=== PATIENT | female | born 1980 | race Caucasian/White ===

== ENCOUNTER 2019-06-02 12:23 | Outpatient (CLI) | payer OTHER, SELFPAY ==
--- NOTE | ~2019-06-02 | MM_ITS ---
EXAMINATION: MM screening [facility] BI w lamont HISTORY: Screening mammogram TECHNIQUE: Craniocaudal and mediolateral oblique 3-D tomosynthesis images were obtained and synthetic 2-D images were generated. CAD analysis was submitted and interpreted. COMPARISON: No prior mammogram is available for comparison at this institution. BREAST PARENCHYMAL COMPOSITION: Breast composed of scattered areas of fibroglandular density. FINDINGS: There is focal asymmetry in the lower inner quadrant of the right breast, middle third. The re is no mammographic evidence for malignancy in the left breast. IMPRESSION: 1. Focal right breast asymmetry lower inner quadrant. 2. Additional mammographic views and possible breast ultrasound are recommended. BI-RADS Category 0: Incomplete: Needs additional imaging evaluation. Reviewed, dictated and finalized at location A. REGULATOR IMPRESSION: 1. Focal right breast asymmetry lower inner quadrant. 2. Additional mammographic views and possible breast ultrasound are recommended . BI-RADS Category 0: Incomplete: Needs additional imaging evaluation.
== END 2019-06-02 12:24 | disposition home or self-care (01) ==
LOC: CHSIMG 12:27
PROVIDERS: Visit Provider Family Medicine
DX: Z12.31 Encounter for screening mammogram for malignant neoplasm of breast (principal)
CPT/HCPCS: 77063; 77067

== ENCOUNTER 2019-06-16 09:48 | Outpatient (CLI) | payer OTHER, SELFPAY ==
--- NOTE | ~2019-06-16 | MMUS_ITS ---
EXAMINATION: MM diagnostic [facility] RT w lamont, US breast RT limited HISTORY: Right breast asymmetry on screening TECHNIQUE: Additional 3-D tomosynthesis images of the right breast were performed and synthetic 2-D i mages were generated. CAD analysis was submitted and interpreted. High resolution limited right breas t ultrasound was performed. COMPARISON: 12/01/2019 FINDINGS: MAMMOGRAPHIC FINDINGS: There is an approximately 1.4 x 0.5 cm oval, low density, obscured mass in the anterior third of the lower breast at the 6:00 location 8.5 cm from the nipple. No suspicious mass or architectural distort ion are identified. ULTRASOUND: There is a 4 mm x 2 mm oval, circumscribed, parallel, hypoechoic mass with no posterior features or i nternal vascularity at the 3:00 location 3 cm from the nipple. There is a 1.8 x 0.4 cm oval circumscr ibed, parallel, hypoechoic mass with no posterior features or internal vascularity at the 5:00 locati on 4 cm from the nipple corresponding to the mammographic finding in question.. IMPRESSION: 1. Probably benign right breast masses. 2. Recommend 6 month follow-up right diagnostic mammogram and ultrasound. BI-RADS category 3, probably benign findings. Reviewed, dictated and finalized at location A. IMPRESSION: 1. Probably benign right breast masses. 2. Recommend 6 month follow-up right diagnostic mammogram and ultrasound. BI-RADS category 3, probably benign findings.
== END 2019-06-16 09:49 | disposition home or self-care (01) ==
LOC: CHSIMG 09:50
PROVIDERS: PCP Family Medicine; Visit Provider Family Medicine
DX: R92.8 Other abnormal and inconclusive findings on diagnostic imaging of breast (principal)
CPT/HCPCS: 76642; 77061; 77065; G0279

== ENCOUNTER 2019-10-19 13:24 | Outpatient (CLI) | payer OTHER, SELFPAY ==
--- NOTE | ~2019-10-19 | XR_ITS ---
XR knee LT 3V DATE: 10/19/2019 13:45 INDICATION: Left anterior knee pain TECHNIQUE: 3 views COMPARISON: None FINDINGS: There is mild loss of joint space height and mild periarticular spurring at the medial comp artment consistent with osteoarthritis. No fracture or dislocation or joint effusion. No periosteal reaction or bone destruction is evident. There is an apparent old healed fracture deformity of the very proximal fibular shaft. No radiopaque intra-articular loose body or chondrocalcinosis. 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
== END 2019-10-19 13:25 | disposition home or self-care (01) ==
PROVIDERS: PCP Family Medicine; Visit Provider Nurse Practitioner
DX: M25.562 Pain in left knee (principal)
CPT/HCPCS: 73562

== ENCOUNTER 2019-12-29 09:44 | Outpatient (CLI) | payer OTHER, SELFPAY ==
--- NOTE | ~2019-12-29 | MMUS_ITS ---
EXAMINATION: MM diagnostic [facility] RT w lamont, US breast RT limited HISTORY: Six-month follow-up TECHNIQUE: ML, MLO and cc full field and spot 3-D tomosynthesis images of the right breast were perfo rmed and synthetic 2-D images were generated. CAD analysis was submitted and interpreted. High resolu tion targeted right breast ultrasound was performed for comparison to 06/16/2019 limited right breast ultrasound examination. COMPARISON: 06/16/2019 diagnostic right digital mammogram and limited right breast ultrasound 06/02/2019 bilateral digital screening mammogram BREAST PARENCHYMAL COMPOSITION: There are scattered areas of fibroglandular density. FINDINGS: MAMMOGRAPHIC FINDINGS: No suspicious mass, architectural distortion, malignant calcification, skin thickening or retraction of the right breast is evident. ULTRASOUND: No suspicious mass or shadowing is detected. IMPRESSION: 1. No mammographic evidence of malignancy 2. Routine mammographic screening is recommended. BI-RADS Category 1: Negative Reviewed, dictated and finalized at location A. IMPRESSION: 1. No mammographic evidence of malignancy 2. Routine mammographic screening is recommended. BI-RADS Category 1: Negative
== END 2019-12-29 09:45 | disposition home or self-care (01) ==
LOC: CHSIMG 09:47
PROVIDERS: Visit Provider Nurse Practitioner
DX: R92.8 Other abnormal and inconclusive findings on diagnostic imaging of breast (principal)
CPT/HCPCS: 76642; 77061; 77065; G0279

== ENCOUNTER 2021-04-28 13:07 | Outpatient (CLI) | payer OTHER, SELFPAY ==
--- NOTE | ~2021-04-28 | MM_ITS ---
EXAMINATION: MM screening [facility] BI w lamont HISTORY: Screening mammogram TECHNIQUE: Craniocaudal and mediolateral oblique 3-D tomosynthesis images were obtained and synthetic 2-D images were generated. CAD analysis was submitted and interpreted. COMPARISON: 12/29/2019, 06/16/2019, 06/02/2019 BREAST PARENCHYMAL COMPOSITION: There are scattered areas of fibroglandular density. FINDINGS: There is no evidence of suspicious mass, calcification, or architectural distortion to sugg est malignancy in either breast. There has been no suspicious interval change. IMPRESSION: 1. No mammographic evidence of malignancy. 2. Recommend routine screening mammography in one year. BI-RADS Category 1: Negative Reviewed, dictated and finalized at location A. O AGENT
== END 2021-04-28 13:08 | disposition home or self-care (01) ==
LOC: CHSIMG 13:12
PROVIDERS: PCP Nurse Practitioner; Visit Provider Nurse Practitioner
DX: Z12.31 Encounter for screening mammogram for malignant neoplasm of breast (principal)
CPT/HCPCS: 77063; 77067

== ENCOUNTER 2022-03-01 16:18 | Emergency (ER) | payer OTHER, SELFPAY ==
--- NOTE | 2022-03-01 16:22 | ED.URI ---
HPI - URI/Sore Throat General Chief Complaint: Upper Respiratory Infection Stated Complaint: at home covid pos today;trouble breathing,heavy ch Time Seen by Provider: 03/01/22 16:22 Source: patient and RN notes reviewed Mode of arrival: ambulatory Limitations: no limitations History of Present Illness HPI Narrative: Patient states that she began having symptoms approximately 3 days ago. She tested for COVID [id number] testing today and it was positive. She is having some increased cough and respiratory issues however she is not in respiratory distress. MD elicited complaint: fever and cough Onset (ago): day(s) (3) Consistency: constant Severity: moderate Description of mucous: clear Able to tolerate fluids by mouth: Yes Exacerbating factors: nothing Relieving factors: nothing Associated symptoms: fever, chills, myalgias, headache and nasal congestion Treatments prior to arrival: none Related Data Home Medications Medication Instructions Recorded Confirmed cetirizine 10 mg tablet 10 mg PO DAILY 03/01/22 03/01/22 citalopram 40 mg tablet 40 mg PO DAILY 03/01/22 03/01/22 famotidine 20 mg tablet 20 mg PO DAILY 03/01/22 03/01/22 hydroxyzine HCl 50 mg tablet 50 mg PO PRN PRN Anxiety 03/01/22 03/01/22 lisinopril 20 1 tablet PO DAILY 03/01/22 03/01/22 mg-hydrochlorothiazide 12.5 mg tablet metformin 1,000 mg tablet 1,000 mg PO BID 03/01/22 03/01/22 Allergies Allergy/AdvReac Type Severity Reaction Status Date / Time No Known Allergies Allergy Verified 03/01/22 16:34 Review of Systems Review of Systems: All systems reviewed & are unremarkable except as noted in HPI and below PMFSH Past Medical History Medical History (Updated 03/01/22 @ 16:46 by Jung Santos MD) Anxiety and depression GERD (gastroesophageal reflux disease) Hypertension Type 2 diabetes mellitus Surgical History Surgical History (Updated 03/01/22 @ 16:44 by Jung Santos MD) History of carpal tunnel release Social History Social History (Updated 03/01/22 @ 16:44 by Jung Santos MD) Smoking status: Current every day smoker Tobacco type: e-cigarettes/vaping Exam Const: General: no acute distress, alert and ill appearing acutely Nutritional Appearance: well nourished and obese Orientation/consciousness: patient oriented x3 Limitations: no limitations HENMT: Head: normal to inspection Ears: external ears normal Eyes: Conjunctivae: conjunctivae normal Pupils: Equal, round and reactive pupils present EOM: EOMs intact bilaterally Neck: Neck: normal visual inspection Resp: Effort & Inspection: normal respiratory effort, not labored and no retractions Auscultation: clear to auscultation bilaterally Cardio: Rate: regular rate Rhythm: regular rhythm GI: GI Palp: Yes Soft to palpation and No Tenderness to palpation present (GI) Auscultation: normal bowel sounds Back/Spine/Pelvis: Cervical Spine: cervical ROM normal Thoracic/Lumbar Spine: thoraco-lumbar ROM normal Skin: General skin exam: normal color Rashes: no rashes Neuro: General: patient oriented x3, moves all extremities, no focal motor deficits and CN's II-XI intact bilaterally Speech: normal speech Gait exam (Neuro): Normal gait present Extrem: General: normal to inspection and no clubbing, cyanosis or edema Psych: Mental Status: mental status grossly normal Affect: normal affect Attitude: cooperative Course Course Emergency Course: Patient is not in any respiratory distress and she is not having any wheezing on examination. She is 99-100% on room air. She does have risk factors that could increase her risk of having worsening outcome with COVID. She will be placed on Paxlovid. Vital Signs Vital signs: Vital Signs Temperature 36.9 C 03/01/22 16:27 Pulse Rate 72 03/01/22 16:27 Respiratory Rate 17 03/01/22 16:27 Blood Pressure 156/80 H 03/01/22 16:27 Pulse Oximetry 99 03/01/22 16:27 Oxygen Delivery Room Air 03/01/22 1
[2022-03-01 16:27] VITALS: BP 156/80; PULSE 72; RESP 17; TEMP 36.9; O2SAT 99
[2022-03-01 16:56] VITALS: BP 120/88; PULSE 80; RESP 18; TEMP 36.6; O2SAT 100
== END 2022-03-01 16:57 | disposition home or self-care (01) ==
PROVIDERS: Emergency Provider Emergency Medicine; PCP Nurse Practitioner
DX: U07.1 COVID-19 (principal)
CPT/HCPCS: 99283

== ENCOUNTER 2022-05-27 08:48 | Outpatient (CLI) | payer OTHER, SELFPAY ==
--- NOTE | ~2022-05-27 | MM_ITS ---
EXAMINATION: MM screening [facility] BI w lamont HISTORY: Screening mammogram TECHNIQUE: Craniocaudal and mediolateral oblique 3-D tomosynthesis images were obtained and synthetic 2-D images were generated. CAD analysis was submitted and interpreted. COMPARISON: 04/24/2021 bilateral screening mammogram 12/29/2019 and 06/16/2019 diagnostic right mammogram and limited right breast ultrasound 06/02/2019 bilateral screening mammogram BREAST PARENCHYMAL COMPOSITION: There are scattered areas of fibroglandular density. FINDINGS: There is no evidence of suspicious mass, calcification, or architectural distortion to sugg est malignancy in either breast. There has been no suspicious interval change. IMPRESSION: 1. No mammographic evidence of malignancy. 2. Recommend routine screening mammography in one year. BI-RADS Category 1: Negative Reviewed, dictated and finalized at location A. [employer]PERATION
== END 2022-05-27 08:49 | disposition home or self-care (01) ==
LOC: CHSIMG 08:50
PROVIDERS: PCP Nurse Practitioner; Visit Provider Nurse Practitioner
DX: Z12.31 Encounter for screening mammogram for malignant neoplasm of breast (principal)
CPT/HCPCS: 77063; 77067

== ENCOUNTER 2023-01-13 19:53 | Emergency (ER) | payer OTHER, SELFPAY ==
[2023-01-13] VITALS (16 sets, daily range): BP systolic 151–166; BP diastolic 70–90; PULSE 57–70; RESP 15–22; TEMP 36.6; O2SAT 95–100
--- NOTE | ~2023-01-13 | CT_ITS ---
EXAMINATION: CT brain wo con INDICATION: Dizziness COMPARISON: None TECHNIQUE: Standard unenhanced head CT. The dose-length product (DLP) was 605.33 mGy-cm. The mA was a djusted according to patient size. Iterative reconstruction technique was employed. FINDINGS: No intracranial hemorrhage, acute infarction, or abnormal mass lesion. The ventricles are n ormal. No abnormal mass effect or midline shift. The rehman-white matter differentiation is normal. The basal cisterns are patent. The orbits are normal. There is a tiny right mastoid effusion. IMPRESSION: 1. No acute intracranial abnormality. Reviewed, dictated and finalized at location F.
[2023-01-13 20:01] LABS: Glucose Point of Care 101 mg/dl (65-105)
--- NOTE | 2023-01-13 20:06 | ED.DIZZY ---
HPI - Dizziness General Chief Complaint: Dizziness Stated Complaint: Nausea/dizziness Source: patient Mode of arrival: ambulatory Limitations: no limitations History of Present Illness HPI Narrative: 42-year-old female a history of hypertension, diabetes mellitus, GERD, anxiety / depression presents to the ER with -- vertigo since 3:00 p.m. Patient has had prior episode of vertigo. This is associated with -- nausea without any vomiting. -- Difficulty ambulating. No focal neuro deficits no chest pain or shortness of breath blood sugar was noted to be 101. MD elicited complaint: dizziness and vertigo Onset (ago): hour(s) ( started 4 hours a) Timing: sudden onset Severity: severe Description: room spinning Context: change in body position History of similar symptoms: Yes Exacerbating factors: change in body position Relieving factors: remaining still Associated symptoms: denies other symptoms, nausea and other ( No ear complaints.) Associated neuro symptoms: other ( No neuro deficit.) Related Data Home Medications Medication Instructions Recorded Confirmed cetirizine 10 mg tablet 10 mg PO DAILY 03/01/22 01/13/23 citalopram 40 mg tablet 40 mg PO DAILY 03/01/22 01/13/23 famotidine 20 mg tablet 20 mg PO DAILY 03/01/22 01/13/23 hydroxyzine HCl 50 mg tablet 50 mg PO PRN PRN Anxiety 03/01/22 01/13/23 lisinopril 20 1 tablet PO DAILY 03/01/22 01/13/23 mg-hydrochlorothiazide 12.5 mg tablet metformin 1,000 mg tablet 1,000 mg PO BID 03/01/22 01/13/23 Allergies Allergy/AdvReac Type Severity Reaction Status Date / Time No Known Allergies Allergy Verified 01/13/23 21:10 Review of Systems Review of Systems: All systems reviewed & are unremarkable except as noted in HPI and below Constitutional: Constitutional: Reports as per HPI and Reports no additional constitutional complaints Eyes: Eyes: Reports as per HPI and Reports no additional eye complaints ENT: Reports system reviewed and no additional complaints, except as documented and Reports as per HPI Cardiovascular: Cardiovascular: Reports as per HPI and Reports no additional cardiovascular complaints Respiratory: Respiratory: Reports as per HPI and Reports no additional respiratory complaints Gastrointestinal: Gastrointestinal: Reports as per HPI and Reports no additional gastrointestinal complaints Genitourinary: Genitourinary: Reports no additional female genitourinary complaints Comments: Tubal ligation 19 years ago. Musculoskeletal: Musculoskeletal: Reports no additional musculoskeletal complaints and Reports as per HPI Integumentary/Breasts: Skin/Breast: Reports system reviewed and no additional complaints, except as docu and Reports as per HPI Neurologic: Reports system reviewed and no additional complaints, except as documented and Reports as per HPI Psychiatric: Psychiatric: Reports no additional psychiatric complaints and Reports as per HPI Hematologic/Lymphatic: Hematologic/Lymphatic: Reports no additional hematologic/lymphatic complaints and Reports as per HPI Allergic/Immunologic: Allergic/Immunologic: Reports no additional allergic/immunologic complaints and Reports as per HPI [facility] Past Medical History Medical History (Updated 01/14/23 @ 00:07 by Jhon Odom MD) Anxiety and depression GERD (gastroesophageal reflux disease) Hypertension Type 2 diabetes mellitus Vertigo Surgical History Surgical History History of carpal tunnel release Social History Social History Smoking status: Current every day smoker Tobacco type: e-cigarettes/vaping Exam Narrative: patient is not orthostatic Const: General: ill appearing Nutritional Appearance: obese Orientation/consciousness: patient oriented x3 Limitations: no limitations HENMT: Head: normal to inspection Ears: TM's normal bilaterally Fac
--- NOTE | 2023-01-13 20:23 | ECG_ITS ---
Measurements Intervals [place] Rate: 57 P: 48 GA: 170 QRS: 33 QRSD: 108 T: 65 QT: 512 QTc: 502 Interpretive Statements SINUS BRADYCARDIA POSSIBLE LEFT ATRIAL ENLARGEMENT [-0.1mV P-WAVE IN V1/V2] MODERATE T-WAVE ABNORMALITY, CONSIDER ANTERIOR ISCHEMIA [-0.1+ mV T-WAVE IN V3/V4] ABNORMAL ECG NO PREVIOUS ECG AVAILABLE FOR COMPARISON Electronically Signed On 01-14-2023 9:06:51 CDT by Joel Valenzuela M.D.
[2023-01-13 20:42] LABS: Basophils Absolute Auto 0.07 K/mm3 (0.00-0.10); Basophils Percent Auto 0.8 % (0.0-1.0); Eosinophils Absolute Auto 0.23 K/mm3 (0.02-0.50); Eosinophils Percent Auto 2.5 % (1.0-6.0); Hematocrit 35.9 % (35.0-49.0); Hemoglobin 11.5 g/dL (12.0-15.0); Immature Granulocyte Absolute 0.03 K/mm3 (0.00-0.00); Immature Granulocyte Percent A 0.3 % (0.0-0.0); Lymphocytes Absolute Auto 1.92 K/mm3 (1.10-4.50); Lymphocytes Percent Auto 21.3 % (18.0-42.0); Mean Corpuscular Hemoglobin 26.8 pg (27.0-31.0); Mean Corpuscular Volume 83.7 fL (78.0-102.0); Mean Platelet Volume 10.6 fl (9.2-11.8); Monocytes Absolute Auto 0.59 K/mm3 (0.10-0.90); Monocytes Percent Auto 6.5 % (2.0-11.0); Neutrophils Absolute Auto 6.2 K/mm3 (1.7-7.2); Neutrophils Percent Auto 68.6 % (50.0-70.0); Platelet Count Result 308 K/mm3 (150-420); Red Blood Count 4.29 M/mm3 (4.20-5.40); Red Cell Distribution Width 13.6 % (11.6-14.4)
[2023-01-13] MEDS: PROCHLORPERAZINE EDISYLATE 10 MG/2 ML VIAL IM (20:42)
[2023-01-13 21:04] LABS: Add Urine Microscopic? NO; Appearance Urine Clear (Clear); Bilirubin Urine Negative (Negative); Blood Urine Negative (Negative); Color Urine Light Yellow (Yellow); Glucose Urine UA Negative (Negative); Ketones Urine Negative (Negative); Leukocyte Esterase Ur Negative LEU/UL (Negative); Nitrate Urine Negative (Negative); Protein Urine Negative (Negative); Urobilinogen Urine 0.2 mg/dL (0.2-1.0)
[2023-01-13 21:08] LABS: Alanine Aminotransferase 35 U/L (14-59); Albumin Level 3.6 g/dL (3.4-5.0); Alkaline Phosphatase 64 U/L (46-116); Anion Gap 10 mmol/L (8-16); Aspartate Amino Transferase 19 U/L (15-37); Bilirubin,Total 0.6 mg/dL (0.00-1.00); Blood Urea Nitrogen 13 mg/dL (7-18); Calcium 9.1 mg/dL (8.5-10.1); Carbon Dioxide 27 mmol/L (21-32); Chloride 102 mmol/L (98-108); Estimated CRCL calculation 82 ml/min; Estimated Glomerular Filt Rate > 60; Glucose 132 mg/dL (70-99); Osmolality Calculated 290 mOsm/kg (285-295); Potassium 3.5 mmol/L (3.5-5.1); Sodium 139 mmol/L (136-145); Thyroid Stimulating Hormone 0.65 uIU/mL (0.36-3.74); Total Protein 7.2 g/dL (6.4-8.2); Troponin I 4.7 ng/L (0.00-60.4)
--- NOTE | 2023-01-13 21:30 | ECG_ITS ---
Measurements Intervals [place] Rate: 61 P: 52 OH: 178 QRS: 35 QRSD: 112 T: 66 QT: 472 QTc: 476 Interpretive Statements SINUS RHYTHM POSSIBLE LEFT ATRIAL ENLARGEMENT [-0.1mV P-WAVE IN V1/V2] MODERATE INTRAVENTRICULAR CONDUCTION DELAY [110+ ms QRS DURATION] NONSPECIFIC T-WAVE ABNORMALITY PROLONGED QT INTERVAL ABNORMAL ECG COMPARED TO ECG 01/13/2023 20:35:07 SINUS RHYTHM NOW PRESENT INTRAVENTRICULAR CONDUCTION DELAY NOW PRESENT PROLONGED QT INTERVAL NOW PRESENT Electronically Signed On 01-14-2023 9:07:39 CDT by Joel Valenzuela M.D.
[2023-01-13 23:53] LABS: Troponin I 5.9 ng/L (0.00-60.4)
[2023-01-14] VITALS: BP 165/88; PULSE 61; RESP 17; O2SAT 96
[2023-01-14 00:01] VITALS: PULSE 63; RESP 19; O2SAT 95
[2023-01-14 00:30] VITALS: TEMP 36
== END 2023-01-14 00:31 | disposition home or self-care (01) ==
PROVIDERS: Emergency Provider Internal Medicine Critical Care Medicine; PCP Nurse Practitioner
DX: R94.31 Abnormal electrocardiogram [ECG] [EKG] (principal); H81.13 Benign paroxysmal vertigo, bilateral; I10 Essential (primary) hypertension; E11.9 Type 2 diabetes mellitus without complications; F17.219 Nicotine dependence, cigarettes, with unspecified nicotine-induced disorders; Z79.899 Other long term (current) drug therapy; Z79.84 Long term (current) use of oral hypoglycemic drugs
CPT/HCPCS: 36415; 70450; 80053; 81003; 82948; 84443; 84484; 85025; 93005; 96372; 99284; J0780

== ENCOUNTER 2023-06-01 14:22 | Outpatient (CLI) | payer OTHER, SELFPAY ==
--- NOTE | ~2023-06-01 | MM_ITS ---
EXAMINATION: MM screening [facility] BI w lamont HISTORY: Screening TECHNIQUE: Craniocaudal and mediolateral oblique 3-D tomosynthesis images were obtained and synthetic 2-D images were generated. CAD analysis was submitted and interpreted. COMPARISON: Comparison to multiple prior studies sequentially, with oldest reviewed study dated 06/02. BREAST PARENCHYMAL COMPOSITION: There are scattered areas of fibroglandular density. FINDINGS: The right breast is stable without evidence for malignancy. There are developing asymmetrie s medially in the left breast on CC view. IMPRESSION: 1. Developing left breast asymmetries. 2. Additional mammographic views and possible breast ultrasound are recommended. BI-RADS Category 0: Incomplete: Needs additional imaging evaluation. Reviewed, dictated and finalized at location A. PRODUCTION SUPERVISOR IMPRESSION: 1. Developing left breast asymmetries. 2. Additional mammographic views and possible breast ultrasound are recommended . BI-RADS Category 0: Incomplete: Needs additional imaging evaluation.
== END 2023-06-01 14:23 | disposition home or self-care (01) ==
LOC: CHSIMG 14:23
PROVIDERS: PCP Nurse Practitioner; Visit Provider Nurse Practitioner
DX: Z12.31 Encounter for screening mammogram for malignant neoplasm of breast (principal); R92.8 Other abnormal and inconclusive findings on diagnostic imaging of breast
CPT/HCPCS: 77063; 77067

== ENCOUNTER 2023-06-15 08:51 | Outpatient (CLI) | payer OTHER, SELFPAY ==
--- NOTE | ~2023-06-15 | MMUS_ITS ---
EXAMINATION: MM diagnostic zuleika LT w lamont, US breast LT limited HISTORY: Developing medial left breast asymmetries reported on June 01, 2023 screening mammogram TECHNIQUE: Additional 3-D tomosynthesis images of the left breast were performed and synthetic 2-D im ages were generated. CAD analysis was submitted and interpreted. High resolution upper inner, lower i nner and upper outer left breast ultrasound examination was performed. COMPARISON: June 01, 2023, May 27, 2022, April 28, 2021, June 02, 2019 bilateral scree klaudia mammogram examinations FINDINGS: MAMMOGRAPHIC FINDINGS: Approximately 4 x 9 mm asymmetric opacity is noted deep in the medial left breast, with a bowtie conf iguration. 2.8 mm x 5 mm possible spiculated mass is suggested in the posterior upper outer left breast (MLO Tunde osynthesis image ). ULTRASOUND: 2:00 10 cm from nipple: There is an irregular hypoechoic solid mass measuring approximately 10 x 8.6 x 5.7 mm. This is suspicious. Ultrasound-guided biopsy is recommended. 12:00 5 cm from nipple: Parallel circumscribed primarily sonolucent lesion measuring 7.3 x 3.8 x 2.6 mm, likely a cyst, benign. IMPRESSION: 1. Indeterminate irregular hypoechoic solid 10 x 8.6 x 5.7 mm mass at left breast 2:00 position 10 cm from nipple 2. Ultrasound-guided biopsy of left breast 2:00 mass is recommended BI-RADS category 4, suspicious findings. Dr. Mullen telephoned the report and ultrasound guided biopsy recommendation for the left 2:00 breast m ass on 06/15/2023 at 1015 hours to LOVE Ramos. Reviewed, dictated and finalized at location A. IMPRESSION: 1. Indeterminate irregular hypoechoic solid 10 x 8.6 x 5.7 mm mass at left hang st 2:00 position 10 cm from nipple 2. Ultrasound-guided biopsy of left breast 2:00 mass is recommended BI-RADS category 4, suspicious findings. Dr. Mullen telephoned the report and ultrasound guided biopsy recommendation for the left 2:00 breast mass on 06/15/2023 at 1015 hours to LOVE Ramos. IMPRESSION: 1. Indeterminate irregular hypoechoic solid 10 x 8.6 x 5.7 mm mass at left ahng st 2:00 position 10 cm from nipple 2. Ultrasound-guided biopsy of left breast 2:00 mass is recommended BI-RADS category 4, suspicious findings. Dr. Mullen telephoned the report and ultrasound guided biopsy recommendation for the left 2:00 breast mass on 06/15/2023 at 1015 hours to LOVE Ramos.
== END 2023-06-15 08:52 | disposition home or self-care (01) ==
LOC: CHSIMG 08:54
PROVIDERS: PCP Nurse Practitioner; Visit Provider Nurse Practitioner
DX: R92.8 Other abnormal and inconclusive findings on diagnostic imaging of breast (principal); N64.89 Other specified disorders of breast
CPT/HCPCS: 76642; 77061; 77065; G0279

== ENCOUNTER 2023-07-06 08:49 | Outpatient (CLI) | payer OTHER, SELFPAY ==
--- NOTE | ~2023-07-06 | US_ITS ---
US breast LT limited DATE: 07/06/2023 09:57 INDICATION: The patient presented for the recommended biopsy of an indeterminate irregular hypoechoic solid 10 x 8.6 x 5.7 mm mass reported at 2:00 position 10 cm from nipple on 06/15/2023 limited left b reast ultrasound examination TECHNIQUE: Real-time imaging was performed by the technologist and subsequently in the presence of brian radiologist. The area of concern at 2:00 10 cm from the nipple appears to be normal fibroglandular stroma, blending in with the adjacent tissues, without any definite apparent focal abnormal mass lesi on or abnormal vascularity on color flow imaging. No suspicious shadowing is noted either. The findings were discussed with the patient and a recommendation was made to the biopsy be canceled and this be followed up in 6 months with repeat ultrasound examination. The patient was pleased with this approach. COMPARISON: 06/15/2023 diagnostic left mammogram and limited left breast ultrasound IMPRESSION: BI-RADS Category 3: Probably benign finding Recommendation: 6 month diagnostic left mammogram and left breast ultrasound follow-up Reviewed, dictated and finalized at Location A. Reviewed, dictated and finalized at location B. IMPRESSION: BI-RADS Category 3: Probably benign finding Recommendation: 6 month diagnostic left mammogram and left breast ultrasound fo llow-up
== END 2023-07-06 08:50 | disposition home or self-care (01) ==
LOC: CHSIMG 08:50
PROVIDERS: PCP Nurse Practitioner; Visit Provider Nurse Practitioner
DX: N63.21 Unspecified lump in the left breast, upper outer quadrant (principal); R92.8 Other abnormal and inconclusive findings on diagnostic imaging of breast
CPT/HCPCS: 76642

== ENCOUNTER 2024-02-28 08:50 | Outpatient (CLI) | payer OTHER, SELFPAY ==
--- NOTE | ~2024-02-28 | MMUS_ITS ---
EXAMINATION: MM diagnostic zuleika LT w lamont, US breast LT limited HISTORY: Follow-up left breast mass TECHNIQUE: Additional 3-D tomosynthesis images of the left breast were performed and synthetic 2-D im ages were generated. CAD analysis was submitted and interpreted. High resolution Limited left breast ultrasound was performed. COMPARISON: Comparison to multiple prior studies sequentially, with oldest reviewed study dated 04/28. BREAST PARENCHYMAL COMPOSITION: Not dense: There are scattered areas of fibroglandular density. FINDINGS: MAMMOGRAPHIC FINDINGS: The left breast is stable. Focal asymmetry medially in the left breast is unchanged from prior examin ation allowing for technique. No new masses, calcifications or architectural distortion is identified . ULTRASOUND: Limited left breast ultrasound: At 2:00, 10 cm from the nipple there is an oval slightly lobulated hy poechoic mass measuring 11 mm maximum dimension. No internal vascularity. No significant posterior fe atures. IMPRESSION: 1. Left breast mass at 2:00, 10 cm from the nipple measuring 10 mm, slightly more prominent than on p rior examination. 2. Ultrasound-guided left breast biopsy recommended. BI-RADS category 4, suspicious findings. Reviewed, dictated and finalized at location B. UCT LINE MANAGER IMPRESSION: 1. Left breast mass at 2:00, 10 cm from the nipple measuring 10 mm, slightly mo re prominent than on prior examination. 2. Ultrasound-guided left breast biopsy recommended. BI-RADS category 4, suspicious findings.
--- NOTE | 2024-02-28 09:26 | EST_ITS ---
Patient Info Name: Susana Colindres Age: 44 years : 1980 Gender: Female Ht: 66 in Wt: 237 lbs BSA: 2.29 m2 HR: 70 bpm BP: 129 / 78 mmHg Heart Rhythm: Sinus Rhythm Technical Quality: Good Exam Date: 02/28/2024 9:50 AM Exam Location: Echo Lab Patient Status: Outpatient Admit Date: 02/28/2024 Staff Ordering Physician: Joo, Liliane Landaverde NP Attending Provider: Joo, Liliane Landaverde NP Exam Type: CA stress test treadmill Study Info Indications chest.pain - A treadmill exercise stress test was performed. History/Risk Factors Hypertension: Yes Dyslipidemia: Yes Obesity: Yes Diabetes Mellitus: Type II Summary 1. 1. Abnormal Osmar exercise stress test for ischemic ST changes by ECG criteria. 2. 2. Reduced functional capacity, achieving 8 METs of workload. 3. 3. Hypertensive response to exercise. 4. 4. Appropriate HR response to exercise. 5. 5. Appropriate HR recovery at 1 minute post exercise. 6. 6. No imaging with stress testing. Protocol: Manual Mode Stress ECG Details Stage: REST Duration (min): 1 min : 18 sec Casarez: --- Speed (mph): 0.0 Grade (%): 0 HR (bpm): 72 SBP (mmHg): 129 DBP (mmHg): 78 METS: --- Stage: REST Duration (min): 1 min : 30 sec Casarez: --- Speed (mph): 0.0 Grade (%): 0 HR (bpm): 70 SBP (mmHg): 129 DBP (mmHg): 78 METS: --- Stage: REST Duration (min): 12 min : 52 sec Casarez: --- Speed (mph): 0.0 Grade (%): 0 HR (bpm): 82 SBP (mmHg): 129 DBP (mmHg): 78 METS: --- Stage: STAGE 1 Duration (min): 1 min : 0 sec Casarez: --- Speed (mph): 1.7 Grade (%): 10 HR (bpm): 98 SBP (mmHg): 129 DBP (mmHg): 78 METS: --- Stage: STAGE 1 Duration (min): 2 min : 0 sec Casarez: --- Speed (mph): 1.7 Grade (%): 10 HR (bpm): 114 SBP (mmHg): 129 DBP (mmHg): 78 METS: --- Stage: STAGE 1 Duration (min): 3 min : 0 sec Casarez: --- Speed (mph): 1.7 Grade (%): 10 HR (bpm): 122 SBP (mmHg): 129 DBP (mmHg): 78 METS: --- Stage: STAGE 1 Duration (min): 4 min : 0 sec Casarez: --- Speed (mph): 2.5 Grade (%): 12 HR (bpm): 132 SBP (mmHg): 129 DBP (mmHg): 78 METS: --- Stage: STAGE 1 Duration (min): 5 min : 0 sec Casarez: --- Speed (mph): 2.5 Grade (%): 12 HR (bpm): 138 SBP (mmHg): 129 DBP (mmHg): 78 METS: --- Stage: STAGE 1 Duration (min): 6 min : 0 sec Casarez: --- Speed (mph): 2.5 Grade (%): 12 HR (bpm): 143 SBP (mmHg): 200 DBP (mmHg): 83 METS: --- Stage: STAGE 1 Duration (min): 6 min : 43 sec Casarez: --- Speed (mph): 3.4 Grade (%): 14 HR (bpm): 149 SBP (mmHg): 200 DBP (mmHg): 83 METS: --- Stage: RECOVERY Duration (min): 0 min : 16 sec Casarez: --- Speed (mph): 1.5 Grade (%): 0 HR (bpm): 146 SBP (mmHg): 200 DBP (mmHg): 83 METS: --- Stage: RECOVERY Duration (min): 1 min : 16 sec Casarez: --- Speed (mph): 0.0 Grade (%): 0 HR (bpm): 125 SBP (mmHg): 200 DBP (mmHg): 83 METS: --- Stage: RECOVERY Duration (min): 2 min : 16 sec Casarez: --- Speed (mph): 0.0 Grade (%): 0 HR (bpm): 110 SBP (mmHg): 210 DBP (mmHg): 73 METS: --- Stage: RECOVERY Duration (min): 3 min : 16 sec Casarez: --- Speed (mph): 0.0 Grade (%): 0 HR (bpm): 102 SBP (mmHg): 210 DBP (mmHg): 73 METS: --- Stage: RECOVERY Duration (min): 4 min : 16 sec Casarez: --- Speed (mph): 0.0 Grade (%): 0 HR (bpm): 94 SBP (mmHg): 210 DBP (mmHg): 73 METS: --- Stage: RECOVERY Duration (min): 5 min : 16 sec Casarez: --- Speed (mph): 0.0 Grade (%): 0 HR (bpm): 94 SBP (mmHg): 210 DBP (mmHg): 73 METS: --- Stage: RECOVERY Duration (min): 6 min : 16 sec Casarez: --- Speed (mph): 0.0 Grade (%): 0 HR (bpm): 93 SBP (mmHg): 181 DBP (mmHg): 71 METS: --- Stage: RECOVERY Duration (min): 7 min : 16 sec Casarez: --- Speed (mph): 0.0 Grade (%): 0 HR (bpm): 94 SBP (mmHg): 181 DBP (mmHg): 71 METS: --- Stage: RECOVERY Duration (min): 8 min : 16 sec Casarez: --- Speed (mph): 0.0 Grade (%): 0 HR (bpm): 90 SBP (mmHg): 162 DBP (mmHg): 71 METS: --- Stage: RECOVERY Duration (min): 9 min : 16 sec Casarez: --- Speed (mph): 0.0 Grade (%): 0 HR (bpm): 88 SBP (mmHg): 162 DBP (mmHg): 71 METS: --- Stage: RECOVERY Duration (min): 10 min : 16 sec Casarez: --- Speed (mph): 0.0 Grade (%): 0 HR (bpm): 88 SBP (mmHg): 139 DBP (mmHg): 66 METS: --- Stage: RECOVERY Duration (min): 11 min : 16 sec Casarez: --- Speed (mph): 0.0 Grade (%): 0 HR (bpm): 90 SBP (mmHg): 139 DBP (mmHg): 66 METS: --- Stage: RECOVERY Duration (min): 11 min : 28 sec Casarez: --- Speed (mph): 0.0 Grade (%): 0 HR (bpm): --- SBP (mmHg): 139 DBP (mmHg): 66 METS: --- Rest HR: 82 bpm Peak HR: 150 bpm Rest Sys BP: 129 mmHg Peak Sys BP: 210 mmHg Max Pred HR: 175 bpm % Max Pred HR: 86 % Target HR: 149 bpm Max RPP: 31,500 bpm*mmHg Target HR Summary: Patient's target heart rate was achieved BP Response: Normal blood pressure response Termination Reason: Fatigue,Dyspnea Cardiac Symptoms: Chest pain Total Time: 6 min : 43 sec Rest Roth BP: 78 mmHg Peak Roth BP: 73 mmHg Resting ECG Normal sinus rhythm, delayed precordial R/S transition. Stress ECG [address] depressin in inferior leads. Arrhythmias Occasional PVCs. Report Signatures
--- NOTE | 2024-02-28 09:38 | ECG_ITS ---
Test Date: 2024-02-28 09:45:31 Measurements Intervals [place] Rate: 71 P: 70 OK: 163 QRS: 71 QRSD: 107 T: 69 QT: 395 QTc: 430 Interpretive Statements SINUS RHYTHM DELAYED PRECORDIAL R/S TRANSITION NONSPECIFIC ST-T WAVE ABNORMALITY- DIFFUSE LEADS BORDERLINE ECG No previous ECG available for comparison Electronically Signed On 02-28-2024 10:21:46 SECRET CODE EXPERT by Clint Tolbert D.O.
== END 2024-02-28 08:51 | disposition home or self-care (01) ==
LOC: CHSIMG 08:54
PROVIDERS: PCP Nurse Practitioner; Visit Provider Nurse Practitioner
DX: R07.9 Chest pain, unspecified (principal); R92.8 Other abnormal and inconclusive findings on diagnostic imaging of breast
CPT/HCPCS: 76642; 77061; 77065; 93005; 93017; G0279

== ENCOUNTER 2024-04-03 07:25 | Outpatient (CLI) | payer OTHER, SELFPAY ==
--- NOTE | ~2024-04-03 | US_ITS ---
EXAMINATION: US breast LT limited DATE: 04/03/2024 08:35 INDICATION: Left breast mass at 2:00, 10 cm from the nipple. TECHNIQUE: Multiple grayscale ultrasound images of the left breast were obtained. COMPARISON: Ultrasound 07/06/2023, 02/28/2024 FINDINGS: Ultrasound of the left breast at 2:00, 10 cm from the nipple demonstrates no abnormality. T he previously described finding correlates with normal tissue. IMPRESSION: 1. BI-RADS Category 1: Negative. Routine screening mammography is recommended in one year. Reviewed, dictated and finalized at location A. EAR EQUIPMENT DESIGN ENGINEER IMPRESSION: 1. BI-RADS Category 1: Negative. Routine screening mammography is recommended i n one year.
== END 2024-04-03 07:26 | disposition home or self-care (01) ==
PROVIDERS: PCP Nurse Practitioner; Visit Provider Nurse Practitioner
DX: N63.21 Unspecified lump in the left breast, upper outer quadrant (principal)
CPT/HCPCS: 76642